=== PATIENT | female | born 1995 | race African-American/Black ===

== ENCOUNTER 2016-12-23 02:41 | Emergency (ER) | payer OTHER ==
[~2016-12-23] VITALS: Ht 167.6 cm; Wt 61.4 kg
[2016-12-23 02:49] VITALS: BP 141/84; TEMP 98.9
[2016-12-23] MEDS ORDERED: SINGULAIR 110 MG/TAB PO (02:52)
[2016-12-23] MEDS ORDERED: ZYRTEC 10MG10 MG PO (02:53)
[2016-12-23] MEDS ORDERED: TEGRETOL 1100 MG/TAB PO (03:20)
[2016-12-23 03:54] VITALS: PULSE 89
== END 2016-12-23 03:55 | disposition home or self-care (01) ==
LOC: COL.ER 02:41
DX: G50.0 Trigeminal neuralgia (principal)